=== PATIENT | male | born 1985 | race Two or more races ===

== ENCOUNTER 2022-07-03 18:52 | Inpatient (IN) | payer OTHER, SELFPAY ==
--- OUTSIDE RECORDS SUMMARY | 2022-07-03 18:55 | XMS_ITS | Continuity of Care Document ---
:1985 Author Organization [facility] Adult Address [address] [place] [address]- Care Team Providers Name Role Phone Claus KHALIL, [place] Primary Care Physician [phone] [id number] Date(s): 03/20/22 - 03/27/22 [facility] Adult [address] [place] [address] Attending Physician: Not on Staff, Attending MD Allergies, Adverse Reactions, Alerts Substance Reaction Severity Status lisinopril cough Active Immunizations Given and Recorded Vaccine Date Status Refusal Reason influenza virus vaccine, inactivated1 09/26/21 Given influenza virus vaccine, inactivated2 06/27/20 Given influenza virus vaccine, inactivated3 07/06/19 Given influenza virus vaccine, inactivated4 08/18/18 Given SARS-CoV-2 (COVID-19) mRNA-1273 vaccine 02/19/21 Recorded SARS-CoV-2 (COVID-19) mRNA-1273 vaccine 01/22/21 Recorded 1Result Comment: [facility] [id number] Comment: [facility] [phone] Comment: [facility] [phone] Comment: [08/18/2018] [facility] [address]-39 Syringe [address]-81 box Medications amLODIPine 5 mg oral tablet 1 tablet = 5 mg, By Mouth, Daily, # 90 tablet, 0 Refills, Maintenance, 03/05/22 15:27:00 EDT, Tablet, [id number], Partial fill upon patient request if the prescription is for a schedule II opioid drug., 178.3, cm, 03/05/22 10:51:00 EDT, Height Start Date: 03/05/22 Status: OrderedHome Blood Pressure Monitor See Instructions, # 1 each, Maintenance, Use as directed to check BP daily, 12/28/21 10:45:00 EDT, Supply Start Date: 12/28/21 Status: Orderedlosartan 50 mg oral tablet 100 mg, 2, tablet, By Mouth, Daily, 2 daily as of 02/27, # 60 tablet, Refills 5, Tot. Refills 5, Maintenance, 02/28/22 8:51:00 EDT, Route to Pharmacy Electronically, [facility]/pharmacy #[id number], Partial fill uponpatient request if the prescription is for a sche... Start Date: 02/28/22 Status: Ordered Problem List Condition Effective Dates Status Health Status Informant HTN (hypertension)(Confirmed) Active Obese class I(Confirmed) Active Obesity(Confirmed) Active Tobacco abuse(Confirmed) Active Vital Signs Most recent to oldest [Reference Range]: 1 2 Height 178.3 cm 178.3 cm (03/20/22 2:30 PM) (03/20/22 2:30 PM) Oxygen Saturation [94-100 %] 96 % 96 % (03/20/22 2:30 PM) (03/20/22 2:30 PM) Pulse Rate [55-90 bpm] 104 bpm 92 bpm *H* *H* (03/20/22 2:30 PM) (03/20/22 2:30 PM) Blood Pressure [90-138/55-84 mm Hg] 134/91 mm Hg 139/ 90 mm Hg (03/20/22 2:30 PM) *H* (03/20/22 2:30 PM) Mode of Delivery (Oxygen) Room air Room air (03/20/22 2:30 PM) (03/20/22 2:30 PM) Blood pressure sites Arm, left Arm, left (03/20/22 2:30 PM) (03/20/22 2:30 PM) Social History Social History Type Response Smoking Status 10 or more cigarettes (1/2 p ack or more)/day in last 30 days entered on: 08/18/18 Sex Male
--- OUTSIDE RECORDS SUMMARY | 2022-07-03 18:55 | XMS_ITS | Continuity of Care Document ---
:1985 Author Organization [facility] Adult Address [address] [place] [address]- Care Team Providers Name Role Phone Claus KHALIL, [place] Primary Care Physician [phone] Encounter [facility] Date(s): 04/25/22 - 05/25/22 [facility] Adult [address] [place] [id number] Allergies, Adverse Reactions, Alerts Substance Reaction Severity Status lisinopril cough Active Immunizations Given and Recorded Vaccine Date Status Refusal Reason influenza virus vaccine, inactivated1 09/26/21 Given influenza virus vaccine, inactivated2 06/27/20 Given influenza virus vaccine, inactivated3 07/06/19 Given influenza virus vaccine, inactivated4 08/18/18 Given SARS-CoV-2 (COVID-19) mRNA-1273 vaccine 02/19/21 Recorded SARS-CoV-2 (COVID-19) mRNA-1273 vaccine 01/22/21 Recorded 1Result Comment: [facility] [id number] Comment: [facility] [phone] Comment: [facility] [phone] Comment: [08/18/2018] [facility] [address]-63 Syringe [address]-73 box Medications amLODIPine 5 mg oral tablet 2 tablet = 10 mg, By Mouth, Daily, # 180 tablet, 1 Refills, Maintenance, 04/26/22 16:17:00 EDT, Tablet, [facility]/pharmacy #[id number], Partial fill upon patient request if the prescription is for a schedule II opioid drug., 178.3, cm, 03/21/22 9:06:00 EDT, Height Start Date: 04/26/22 Status: OrderedHome Blood Pressure Monitor See Instructions, # 1 each, Maintenance, Use as directed to check BP daily, 12/28/21 10:45:00 EDT, Supply Start Date: 12/28/21 Status: Orderedlosartan 50 mg oral tablet 100 mg, 2, tablet, By Mouth, Daily, 2 daily as of 02/27, # 60 tablet, Refills 5, Tot. Refills 5, Maintenance, 02/28/22 8:51:00 EDT, Route to Pharmacy Electronically, [facility]/pharmacy #[id number], Partial fill uponpatient request if the prescription is for a sche... Start Date: 02/28/22 Status: Ordered Problem List Condition Effective Dates Status Health Status Informant HTN (hypertension)(Confirmed) Active Obese class I(Confirmed) Active Obesity(Confirmed) Active Tobacco abuse(Confirmed) Active Social History Social History Type Response Smoking Status 10 or more cigarettes (1/2 p ack or more)/day in last 30 days entered on: 08/18/18 Sex Male Care Team PersonnelName: Mariel Devlin MD Address: [address] [place] [address] [address] [place], [place] [address]
--- OUTSIDE RECORDS SUMMARY | 2022-07-03 18:55 | XMS_ITS | Continuity of Care Document ---
:1985 Author Organization [facility] Adult Address [address] [place] [address]- Care Team Providers Name Role Phone Claus KHALIL, Mariel Primary Care Physician [place] [facility] Date(s): 04/30/22 - 05/30/22 [facility] Adult [address] [place] [address] Attending Physician: Admmamta, Remy8 Admitting Physician: Admtr, Remy8 Referring Physician: Admtr, Ar8 Allergies, Adverse Reactions, Alerts Substance Reaction Severity Status lisinopril cough Active Immunizations Given and Recorded Vaccine Date Status Refusal Reason influenza virus vaccine, inactivated1 09/26/21 Given influenza virus vaccine, inactivated2 06/27/20 Given influenza virus vaccine, inactivated3 07/06/19 Given influenza virus vaccine, inactivated4 08/18/18 Given SARS-CoV-2 (COVID-19) mRNA-1273 vaccine 02/19/21 Recorded SARS-CoV-2 (COVID-19) mRNA-1273 vaccine 01/22/21 Recorded 1Result Comment: [facility] [id number] Comment: [facility] [phone] Comment: [facility] [phone] Comment: [08/18/2018] [facility] [address]-48 Syringe [address]-51 box Medications amLODIPine 5 mg oral tablet 2 tablet = 10 mg, By Mouth, Daily, # 180 tablet, 1 Refills, Maintenance, 04/26/22 16:17:00 EDT, Tablet, [id number], Partial fill upon patient request if the [...] 02/28/22 8:51:00 EDT, Route to Pharmacy Electronically, [facility]/pharmacy #[id number], Partial fill uponpatient request if the prescription [...] on: 08/18/18 Sex Male Care Team PersonnelName: Claus KHALIL, Mariel Address: [address] [place] [address] [address] [place], [place] [address]
--- OUTSIDE RECORDS SUMMARY | 2022-07-03 18:55 | XMS_ITS | Continuity of Care Document ---
:1985 Author Organization [facility] Adult Address [address] [place] [address]- Care Team Providers Name Role Phone Claus KHALIL, [place] Primary Care Physician [place] [facility] Date[place]s): 02/27/22 - 03/29/22 [facility] Adult [address] [place] [address] Allergies, Adverse Reactions, Alerts Substance Reaction Severity Status lisinopril cough Active Immunizations Given and Recorded Vaccine Date Status Refusal Reason influenza virus vaccine, inactivated1 09/26/21 Given influenza virus vaccine, inactivated2 06/27/20 Given influenza virus vaccine, inactivated3 07/06/19 Given influenza virus vaccine, inactivated4 08/18/18 Given SARS-CoV-2 (COVID-19) mRNA-1273 vaccine 02/19/21 Recorded SARS-CoV-2 (COVID-19) mRNA-1273 vaccine 01/22/21 Recorded 1Result Comment: [facility] [id number] Comment: [facility] [phone] Comment: [facility] [phone] Comment: [08/18/2018] [facility] [address]-73 Syringe [address]-51 box Medications amLODIPine 5 mg oral tablet 1 tablet = 5 mg, By Mouth, Daily, # 90 tablet, 0 Refills, Maintenance, 03/05/22 15:27:00 EDT, Tablet, [id number], Partial fill upon patient request if the [...] 02/28/22 8:51:00 EDT, Route to Pharmacy Electronically, [facility]/pharmacy #[id number], Partial fill uponpatient request if the prescription [...]
--- OUTSIDE RECORDS SUMMARY | 2022-07-03 18:55 | XMS_ITS | Continuity of Care Document ---
:1985 Author Organization [facility] Address [address] [place] [address]- Care Team Providers Name Role Phone Alondra BOBBY, [place] Primary Care Physician Encounter [facility] Date(s): 03/10/20 - 03/17/20 [facility] [address] [place] [address]- [facility] Attending Physician: Matt KHALIL, Kanu Wen Referring Physician: Zenobia Cantu NP Allergies, Adverse Reactions, Alerts Substance Reaction Severity Status NKA Active Immunizations Given and Recorded Vaccine Date Status Refusal Reason influenza virus vaccine, inactivated1 07/06/19 Given influenza virus vaccine, inactivated2 08/18/18 Given 1Result Comment: [facility] [phone] Comment: [08/18/2018] [facility] [address]-25 Syringe [address]-86 box Medications Bactrim DS 800 mg-160 mg oral tablet 1 tablet, By Mouth, 2 times a day, for 10 days, # 20 tablet, 0 Refills, Acute 03/20/20 13:21:00 EDT,03/10/20 13:21:00 EDT, Tablet, [id number], 1 tablet By Mouth 2 times a day,x10 days, 178.3, cm, 03/10/20 13:12:00 EDT, Height Start Date: 03/10/20 Stop Date: 03/20/20 Status: OrderedLamISIL AT [employer] 1% topical cream 1 application, Topically, 2 times a day, # 30 Gm, 1 Refills, Maintenance, 08/18/18 13:31:05 EST, Cream, 1 application Topically 2 times a day Start Date: 08/18/18 Status: Orderednabumetone 500 mg oral tablet 1 tablet = 500 mg, By Mouth, 2 times a day, # 60 tablet, 1 Refills, Maintenance, 01/04/19 14:54:02 EDT, Tablet Start Date: 01/04/19 Status: OrderedWellbutrin SR 150 mg/12 hours oral tablet, extended release See Instructions, Take one tablet daily for one week and then increase to one tablet BID D/C Chantix, # 60 tablet, 3 Refills, Maintenance, 10/06/18 14:51:58 EST, ER Tablet Start Date: 10/06/18 Status: Ordered Problem List Condition Effective Dates Status Health Status Informant Tobacco abuse(Confirmed) Active Vital Signs Most recent to oldest [Reference Range]: 1 Height 178.3 cm (03/10/20 1:12 PM) Oxygen Saturation [94-100 %] 98 % (03/10/20 1:12 PM) Pulse Rate [55-90 bpm] 114 bpm *H* (03/10/20 1:12 PM) Blood Pressure [90-138/55-84 mm Hg] 146/90 mm Hg *H* (03/10/20 1:12 PM) Respiratory Rate [16-30 br/min] 20 br/min (03/10/20 1:12 PM) Temperature [96.8-100.4 DegF] 98.0 DegF (03/10/20 1:12 PM) Mode of Delivery (Oxygen) Room air (03/10/20 1:12 PM) Blood pressure sites Arm, left (03/10/20 1:12 PM) Temperature Route Temporal (03/10/20 1:12 PM) Social History Social History Type Response Smoking Status 10 or more cigarettes (1/2 p ack or more)/day in last 30 days entered on: 08/18/18 Sex
--- OUTSIDE RECORDS SUMMARY | 2022-07-03 18:55 | XMS_ITS | Continuity of Care Document ---
:1985 Author Organization [facility] Adult Address [address] [place] [address]- Care Team Providers Name Role Phone Alondra BOBBY, [place] Primary Care Physician [place] [facility] Date(s): 10/01/19 - 01/29/20 [facility] Adult [address] [place] [address]- [facility] Attending Physician: Not on Staff, Attending MD Allergies, Adverse Reactions, Alerts Substance Reaction Severity Status NKA Active Immunizations Given and Recorded Vaccine Date Status Refusal Reason influenza virus vaccine, inactivated1 07/06/19 Given influenza virus vaccine, inactivated2 08/18/18 Given 1Result Comment: [facility] [phone] Comment: [08/18/2018] [facility] [id number] Syringe [address]-20 box Medications LamISIL AT [facility] 1% topical cream 1 [...] Status Health Status Informant Tobacco abuse(Confirmed) Active Social History Social History Type Response Smoking Status 10 or more cigarettes (1/2 p ack or more)/day in last 30 days entered on: 08/18/18 Sex
--- OUTSIDE RECORDS SUMMARY | 2022-07-03 18:55 | XMS_ITS | Continuity of Care Document ---
:1985 Author Organization [facility] Adult Address [address] [place] [address]- Care Team Providers Name Role Phone Claus KHALIL, [place] Primary Care Physician [phone] Encounter [facility] [place] Date(s): 03/20/22 - 05/09/22 [facility] Adult [address] [place] [id number] Attending Physician: Not on Staff, Attending [...] (COVID-19) mRNA-1273 vaccine 01/22/21 Recorded 1Result Comment: [facility] [id number] Comment: [facility][note 2] [id number] Comment: [facility] [phone] Comment: [08/18/2018] [facility] [address]-10 Syringe [address]-50 box Medications amLODIPine 5 mg oral tablet 2 tablet = 10 mg, By Mouth, Daily, # 180 tablet, 1 Refills, Maintenance, 04/26/22 16:17:00 EDT, [facility]t, [id number], Partial fill upon patient request if the [...] 02/28/22 8:51:00 EDT, Route to Pharmacy Electronically, [facility]/pharmacy #[id number], Partial fill uponpatient request if the prescription [...]
--- OUTSIDE RECORDS SUMMARY | 2022-07-03 18:55 | XMS_ITS | Continuity of Care Document ---
:1985 Author Organization [facility] Adult Address [address] [place] [address]- Care Team Providers Name Role Phone Claus KHALIL, Mariel Primary Care Physician [place] [facility] [place] Date(s): 06/29/20 - 07/29/20 [facility] Adult [address] [place] [address]- [facility] Allergies, Adverse Reactions, Alerts Substance Reaction Severity Status NKA Active Immunizations Given and Recorded Vaccine Date Status Refusal Reason influenza virus vaccine, inactivated1 06/27/20 Given influenza virus vaccine, inactivated2 07/06/19 Given influenza virus vaccine, inactivated3 08/18/18 Given 1Result Comment: [facility] [id number] Comment: [facility] [phone] Comment: [08/18/2018] [facility] [address]-80 Syringe [address]-56 box Medications LamISIL AT [facility] 1% [...]
--- OUTSIDE RECORDS SUMMARY | 2022-07-03 18:55 | XMS_ITS | Continuity of Care Document ---
:1985 Author Organization [facility] Address [address] [place] [address]- Care Team Providers Name Role Phone Claus KHALIL, [place] Primary Care Physician [phone] Encounter [facility] Date(s): 03/05/22 - 04/04/22 [facility] [address] [place], [place] [address] Allergies, Adverse Reactions, Alerts Substance Reaction Severity Status lisinopril cough Active Immunizations Given and Recorded Vaccine Date Status Refusal Reason influenza virus vaccine, inactivated1 09/26/21 Given influenza virus vaccine, inactivated2 06/27/20 Given influenza virus vaccine, inactivated3 07/06/19 Given influenza virus vaccine, inactivated4 08/18/18 Given SARS-CoV-2 (COVID-19) mRNA-1273 vaccine 02/19/21 Recorded SARS-CoV-2 (COVID-19) mRNA-1273 vaccine 01/22/21 Recorded 1Result Comment: [facility] [id number] Comment: [facility] [id number] Comment: [facility] [phone] Comment: [08/18/2018] [facility] [address]-47 Syringe [address]-30 box Medications amLODIPine 5 mg oral tablet 1 tablet = 5 mg, By Mouth, Daily, # 90 tablet, 0 Refills, Maintenance, 03/05/22 15:27:00 EDT, Tablet, [id number], Partial fill upon patient request if the [...] 02/28/22 8:51:00 EDT, Route to Pharmacy Electronically, [facility]/pharmacy #[id number], Partial fill uponpatient request if the prescription [...]
--- OUTSIDE RECORDS SUMMARY | 2022-07-03 18:55 | XMS_ITS | Continuity of Care Document ---
:1985 Author Organization [facility] Adult Address [address] [place] [address]- Care Team Providers Name Role Phone Claus KHALIL, [place] Primary Care Physician [phone] En[place] [facility] Date(s): 03/05/22 - 03/12/22 [facility] [address] [place] [address] Attending Physician: Not on Staff, [...] vaccine 01/22/21 Recorded 1Result Comment: [facility] [id number] Comment: [facility] [phone] Comment: [facility] [phone] Comment: [08/18/2018] [facility] [address]-78 Syringe [address]-46 box Medications amLODIPine 5 mg oral tablet 1 tablet = 5 mg, By Mouth, Daily, # 90 tablet, 0 Refills, Maintenance, 03/05/22 15:27:00 EDT, Tablet, [id number], Partial fill upon patient request if the [...] 02/28/22 8:51:00 EDT, Route to Pharmacy Electronically, [facility]/pharmacy #[id number], Partial fill uponpatient request if the prescription is for a sche... Start Date: 02/28/22 Status: Ordered Problem List Condition Effective Dates Status Health Status Informant HTN (hypertension)(Confirmed) Active Obese class I(Confirmed) Active Obesity(Confirmed) Active Tobacco abuse(Confirmed) Active Vital Signs Most recent to oldest [Reference Range]: 1 2 Height 178.3 cm 178.3 cm (03/05/22 10:51 AM) (03/05/22 10:49 AM) Oxygen Saturation [94-100 %] 97 % (03/05/22 10:49 AM) Pulse Rate [55-90 bpm] 96 bpm 98 bpm *H* *H* (03/05/22 10:51 AM) (03/05/22 10:49 AM) Blood Pressure [90-138/55-84 mm Hg] 154/105 mm Hg 166/ 112 mm Hg *H* *H* (03/05/22 10:51 AM) (03/05/22 10:49 AM) Mode of Delivery (Oxygen) Nasal CPAP (03/05/22 10:49 AM) Blood pressure sites Arm, left Arm, left (03/05/22 10:51 AM) (03/05/22 10:49 AM) Social History Social History Type Response Smoking Status 10 or more cigarettes (1/2 p ack or more)/day in last 30 days entered on: 08/18/18 Sex Male
--- OUTSIDE RECORDS SUMMARY | 2022-07-03 18:55 | XMS_ITS | Continuity of Care Document ---
:1985 Author Organization [facility] Adult Address [address] [place] [address]- Care Team Providers Name Role Phone Claus KHALIL, Mariel Primary Care Physician [place] [facility] Date(s): 11/28/21 - 12/28/21 [facility] Adult [address] [place] [id number] Allergies, Adverse Reactions, Alerts Substance Reaction Severity Status lisinopril cough Active Immunizations Given and Recorded Vaccine Date Status Refusal Reason influenza virus vaccine, inactivated1 09/26/21 Given influenza virus vaccine, inactivated2 06/27/20 Given influenza virus vaccine, inactivated3 07/06/19 Given influenza virus vaccine, inactivated4 08/18/18 Given SARS-CoV-2 (COVID-19) mRNA-1273 vaccine 02/19/21 Recorded SARS-CoV-2 (COVID-19) mRNA-1273 vaccine 01/22/21 Recorded 1Result Comment: [facility] [id number] Comment: [facility] [id number] Comment: [facility] [phone] Comment: [08/18/2018] [facility] [id number] Syringe [id number] box Medications Home Blood Pressure Monitor See Instructions, # 1 each, Maintenance, Use as directed to check BP daily, 12/28/21 10:45:00 EDT, Supply Start Date: 12/28/21 Status: Orderedlosartan 50 mg oral tablet 50 mg, 1, tablet, By Mouth, Daily, # 30 tablet, Refills 5, Tot. Refills 5, Maintenance, 12/28/21 10:45:00 EDT, Route to Pharmacy Electronically, [facility]/pharmacy #[id number], Partial fill upon patient request ifthe prescription is for a schedule II opioid drug... Start Date: 12/28/21 Status: Ordered Problem List Condition Effective Dates Status Health Status Informant HTN (hypertension)(Confirmed) Active Obese class I(Confirmed) Active Obesity(Confirmed) Active Tobacco abuse(Confirmed) Active Social History Social History Type Response Smoking Status 10 or more cigarettes (1/2 p ack or more)/day in last 30 days entered on: 08/18/18 Sex Male
--- OUTSIDE RECORDS SUMMARY | 2022-07-03 18:55 | XMS_ITS | Continuity of Care Document ---
:1985 Author Organization [facility] Adult Address [address] [place] [address]- Care Team Providers Name Role Phone Claus KHALIL, Mraiel Primary Care Physician [phone] Encounter [facility] [id number] Date(s): 11/27/21 - 12/27/21 [facility] [address] [place] [address] Allergies, Adverse Reactions, Alerts No Known Allergies Immunizations Given and Recorded Vaccine Date Status Refusal Reason influenza virus vaccine, inactivated1 09/26/21 Given influenza virus vaccine, inactivated2 06/27/20 Given influenza virus vaccine, inactivated3 07/06/19 Given influenza virus vaccine, inactivated4 08/18/18 Given SARS-CoV-2 (COVID-19) mRNA-1273 vaccine 02/19/21 Recorded SARS-CoV-2 (COVID-19) mRNA-1273 vaccine 01/22/21 Recorded 1Result Comment: [facility] [id number] Comment: [facility] [id number] Comment: [facility] [phone] Comment: [08/18/2018] [facility] [id number] Syringe [address]-88 box Medications lisinopril 20 mg oral tablet 20 mg, 1, tablet, By Mouth, Daily, # 30 tablet, Refills 5, Tot. Refills 5, Maintenance, 12/21/21 13:43:00 EDT, Route to Pharmacy Electronically, [facility]/pharmacy #[id number], Partial fill upon patient request ifthe prescription is for a schedule II opioid drug... Start Date: 12/21/21 Stop Date: 06/19/22 Status: OrderedMultivitamin Daily, 0 Refills, Maintenance, 10/24/21 14:00:00 EST, Partial fill upon patient request if the prescription is for a schedule II opioid drug. Start Date: 10/24/21 Status: Ordered Problem List Condition Effective Dates Status Health Status Informant HTN (hypertension)(Confirmed) Active Obese class I(Confirmed) Active Obesity(Confirmed) Active Tobacco abuse(Confirmed) Active Social History Social History Type Response Smoking Status 10 or more cigarettes (1/2 p ack or more)/day in last 30 days entered on: 08/18/18 Sex Male
--- OUTSIDE RECORDS SUMMARY | 2022-07-03 18:55 | XMS_ITS | Continuity of Care Document ---
:1985 Author Organization [facility] Adult Address [address] [place] [address]- Care Team Providers Name Role Phone Mariel Devlin MD Primary Care Physician [phone] Encounter [facility] [place] Date(s): 01/28/22 - 02/04/22 [facility] Adult [address] [place] [address]- Encounter Diagnosis HTN (hypertension) (Discharge Diagnosis) - 01/28/22 Attending Physician: Mariel Devlin MD Allergies, Adverse Reactions, Alerts Substance Reaction Severity Status lisinopril cough Active Immunizations Given and Recorded Vaccine Date Status Refusal Reason influenza virus vaccine, inactivated1 09/26/21 Given influenza virus vaccine, inactivated2 06/27/20 Given influenza virus vaccine, inactivated3 07/06/19 Given influenza virus vaccine, inactivated4 08/18/18 Given SARS-CoV-2 (COVID-19) mRNA-1273 vaccine 02/19/21 Recorded SARS-CoV-2 (COVID-19) mRNA-1273 vaccine 01/22/21 Recorded 1Result Comment: [facility] [id number] Comment: [facility] [place] [id number] Comment: [facility] [phone] Comment: [08/18/2018] [facility] [address]-18 Syringe [id number] box Medications Home Blood Pressure Monitor See Instructions, # 1 each, Maintenance, Use as directed to check BP daily, 12/28/21 10:45:00 EDT, Supply Start Date: 12/28/21 Status: Orderedlosartan 50 mg oral tablet 50 mg, 1, tablet, By Mouth, Daily, # 30 tablet, Refills 5, Tot. Refills 5, Maintenance, 12/28/21 10:45:00 EDT, Route to Pharmacy Electronically, [facility]/pharmacy #[id number], Partial fill upon patient request ifthe prescription is for a schedule II opioid drug... Start Date: 12/28/21 Status: Ordered Problem List Condition Effective Dates Status Health Status Informant HTN (hypertension)(Confirmed) Active Obese class I(Confirmed) Active Obesity(Confirmed) Active Tobacco abuse(Confirmed) Active Diagnosis Diagnosis Type Effective Dates Health Status Clinical In formant Service HTN Discharge 01/28/22 (hypertension) Diagnosis Vital Signs Most recent to oldest [Reference Range]: 1 Height 178.3 cm (01/28/22 2:45 PM) Social History Social History Type Response Smoking Status 10 or more cigarettes (1/2 p ack or more)/day in last 30 days entered on: 08/18/18 Sex Male
--- OUTSIDE RECORDS SUMMARY | 2022-07-03 18:55 | XMS_ITS | Continuity of Care Document ---
:1985 Author Organization [facility] Address [address] [place] [address]- Care Team Providers Name Role Phone Alondra BOBBY, Zenobia Primary Care Physician [place] [facility] [place] 03/10/20 - 04/09/20 [facility] [address] [place] [address]- [facility] Attending Physician: Barbara Yip Admitting Physician: AdmBarbara oleary Referring Physician: Admtr ArRell Allergies, Adverse Reactions, Alerts Substance Reaction Severity Status NKA Active Immunizations Given and Recorded Vaccine Date Status Refusal Reason influenza virus vaccine, inactivated1 07/06/19 Given influenza virus vaccine, inactivated2 08/18/18 Given 1Result Comment: [facility] [phone] Comment: [08/18/2018] [facility] [address]-43 Syringe [address]-01 box Medications LamISIL AT [facility] 1% [...]
--- OUTSIDE RECORDS SUMMARY | 2022-07-03 18:55 | XMS_ITS | Continuity of Care Document ---
:1985 Author Organization [facility] Address [address] [place] [address]- Care Team Providers Name Role Phone Claus KHALIL, Mariel Primary Care Physician [phone] Encounter [facility] [place] Date(s): 09/26/21 - 10/03/21 [facility] [address] [place] [address] Encounter Diagnosis History of COVID-19 (Discharge Diagnosis) - 09/26/21 Obesity (Discharge Diagnosis) - 09/26/21 HTN (hypertension) (Discharge Diagnosis) - 09/26/21 Attending Physician: Mariel Devlin MD Allergies, Adverse Reactions, Alerts Substance Reaction Severity Status NKA Active Immunizations Given and Recorded Vaccine Date Status Refusal Reason influenza virus vaccine, inactivated1 09/26/21 Given influenza virus vaccine, inactivated2 06/27/20 Given influenza virus vaccine, inactivated3 07/06/19 Given influenza virus vaccine, inactivated4 08/18/18 Given 1Result Comment: [facility] [id number] Comment: [facility] [phone] Comment: [facility] [phone] Comment: [08/18/2018] [facility] [address]-29 Syringe [address]-49 box Medications lisinopril 10 mg oral tablet 10 mg, 1, tablet, By Mouth, Daily, # 30 tablet, Refills 1, Tot. Refills 1, Maintenance, 09/26/21 9:24:00 EST, Route to Pharmacy Electronically, [facility]/pharmacy #[id number], Partial fill upon patient request if the prescription is for a schedule II opioid drug.... Start Date: 09/26/21 Status: Ordered Problem List Condition Effective Dates Status Health Status Informant HTN (hypertension)(Confirmed) Active Obesity(Confirmed) Active Tobacco abuse(Confirmed) Active Diagnosis Diagnosis Type Effective Dates Health Status Clinical In formant Service History of Discharge 09/26/21 COVID-19 Diagnosis Obesity Discharge 09/26/21 Diagnosis HTN Discharge 09/26/21 (hypertension) Diagnosis Vital Signs Most recent to oldest 1 2 3 [Reference Range]: Height 178.3 cm 178.3 cm 178.3 cm (09/26/21 9:21 AM) (09/26/21 9:09 AM) (09/26/21 9:01 AM) Weight 106.2 kg (09/26/21 9:01 AM) Oxygen Saturation [94-100 %] 96 % (09/26/21 9:01 AM) Pulse Rate [55-90 bpm] 103 bpm *H* (09/26/21 9:01 AM) Body Mass Index [18.5-24.99] 33.41 *>HHI* (09/26/21 9:01 AM) Blood Pressure [90-138/55-84 144/86 mm Hg 159/112 mm Hg 168 /108 mm Hg mm Hg] *H* *H* *H* (09/26/21 9:21 AM) (09/26/21 9:09 AM) (09/26/21 9:01 AM) Temperature [96.8-100.4 98 DegF DegF] (09/26/21 9:01 AM) Mode of Delivery (Oxygen) Room air (09/26/21 9:01 AM) Blood pressure sites Arm, left Arm, left (09/26/21 9:09 AM) (09/26/21 9:01 AM) Temperature Route Oral (09/26/21 9:01 AM) Weight Obtained Via Standing scale (09/26/21 9:01 AM) Social History Social History Type Response Smoking Status 10 or more cigarettes (1/2 p ack or more)/day in last 30 days entered on: 08/18/18 Sex Male
--- OUTSIDE RECORDS SUMMARY | 2022-07-03 18:55 | XMS_ITS | Continuity of Care Document ---
:1985 Author Organization [facility] Address [address] [place] [address]- Care Team Providers Name Role Phone Claus KHALIL, Mariel Primary Care Physician Encounter [facility] [place] Date(s): 02/26/22 - 03/28/22 [facility] [address] [place] [id number] Allergies, Adverse Reactions, Alerts Substance Reaction Severity Status lisinopril cough Active Immunizations Given and Recorded Vaccine Date Status Refusal Reason influenza virus vaccine, inactivated1 09/26/21 Given influenza virus vaccine, inactivated2 06/27/20 Given influenza virus vaccine, inactivated3 07/06/19 Given influenza virus vaccine, inactivated4 08/18/18 Given SARS-CoV-2 (COVID-19) mRNA-1273 vaccine 02/19/21 Recorded SARS-CoV-2 (COVID-19) mRNA-1273 vaccine 01/22/21 Recorded 1Result Comment: [facility] [id number] Comment: [facility] [phone] Comment: [facility] [phone] Comment: [08/18/2018] [facility] [address]-79 Syringe [id number] box Medications amLODIPine 5 mg oral tablet 1 tablet = 5 mg, By Mouth, Daily, # 90 tablet, 0 Refills, Maintenance, 03/05/22 15:27:00 EDT, Tablet, [id number], Partial fill upon patient request if the [...] 02/28/22 8:51:00 EDT, Route to Pharmacy Electronically, [facility]/pharmacy #[id number], Partial fill uponpatient request if the prescription [...]
--- OUTSIDE RECORDS SUMMARY | 2022-07-03 18:55 | XMS_ITS | Continuity of Care Document ---
:1985 Author Organization [facility] Address [address] [place] [address]- Care Team Providers Name Role Phone Claus KHALIL, Mariel Primary Care Physician [place] [facility] [place] [id number] Date(s): 02/26/22 - 02/26/[address] [address]- Discharge Disposition: A-D/C Home Attending Physician: Jocelin Broderick MD Admitting Physician: Jocelin Broderick MD Referring Physician: Not on Staff, Referring MD Allergies, Adverse Reactions, Alerts Substance Reaction Severity Status lisinopril cough Active Immunizations Given and Recorded Vaccine Date Status Refusal Reason influenza virus vaccine, inactivated1 09/26/21 Given influenza virus vaccine, inactivated2 06/27/20 Given influenza virus vaccine, inactivated3 07/06/19 Given influenza virus vaccine, inactivated4 08/18/18 Given SARS-CoV-2 (COVID-19) mRNA-1273 vaccine 02/19/21 Recorded SARS-CoV-2 (COVID-19) mRNA-1273 vaccine 01/22/21 Recorded 1Result Comment: [facility] [id number] Comment: [facility] [phone] Comment: [facility] [phone] Comment: [08/18/2018] [facility] [address]-29 Syringe [id number] box Medications Home Blood Pressure Monitor See Instructions, # 1 each, Maintenance, Use as directed to check BP daily, 12/28/21 10:45:00 EDT, Supply Start Date: 12/28/21 Status: Orderedlosartan 50 mg oral tablet 50 mg, 1, tablet, By Mouth, Daily, # 30 tablet, Refills 5, Tot. Refills 5, Maintenance, 12/28/21 10:45:00 EDT, Route to Pharmacy Electronically, [facility]/pharmacy #[id number], Partial fill upon patient request ifthe prescription is for a schedule II opioid drug... Start Date: 12/28/21 Status: Ordered Problem List Condition Effective Dates Status Health Status Informant HTN (hypertension)(Confirmed) Active Obese class I(Confirmed) Active Obesity(Confirmed) Active Tobacco abuse(Confirmed) Active Results Radiology Reports Exam Date Time Procedure Performing Provider Status 02/26/22 3:28 PM Chest 2 Views Frontal and Lat Yancy Mcknight; Jovon (Verified) Notes:(Chest 2 Views Frontal and Lat) Reason For Exam: Chest Pain;Other:RESULT: Chest 2 Views Frontal and Lat Chest 2 Views Frontal and Lat INDICATION: Chest pain. COMPARISON: None. FINDINGS: LINES AND TUBES: None. LUNGS AND PLEURA: Clear lungs. Normal pulmonary vascularity. No pleural effusion. No pneumothorax. HEART, MEDIASTINUM AND JANET: Heart is normal in size. Normal upper mediastinal and hilar contour. BONES AND SOFT TISSUES: No acute abnormality. IMPRESSION: No acute abnormality. WSN: [id number] Ordering Physician: Don Harris Dictated By: Rene Chamorro MD Dictated Date/Time: 02/26/22 3:43 pm Reviewed By: Rene Chamorro MD Signed By: Rene Chamorro MD Signed Date/Time: 02/26/22 3:43 pm Transcribed By: ROMELIA Transcribed Date/Time: 02/26/22 3:42 pm Vital Signs Most recent to oldest 1 2 3 [Reference Range]: Oxygen Saturation [94-100 %] 99 % 99 % 100 % (02/26/22 3:54 PM) (02/26/22 2:25 PM) (02/26/22 2:0 3 PM) Pulse Rate [55-90 bpm] 93 bpm 108 bpm 135 bpm *H* *H* *H* (02/26/22 3:54 PM) (02/26/22 2:25 PM) (02/26/22 2:0 3 PM) Blood Pressure [90-138/55-84 mm 165/101 mm Hg 168/107 mm Hg Hg] *H* *H* (02/26/22 3:54 PM) (02/26/22 2:25 PM) Respiratory Rate [16-30 br/min] 22 br/min (02/26/22 2:25 PM) Temperature [96.8-100.4 DegF] 97.9 DegF 98.2 DegF (02/26/22 3:54 PM) (02/26/22 2:25 PM) Mode of Delivery (Oxygen) Room air Room air Room a ir (02/26/22 3:54 PM) (02/26/22 2:25 PM) (02/26/22 2:0 3 PM) Blood pressure sites Arm, left Arm, right (02/26/22 3:54 PM) (02/26/22 2:25 PM) Temperature Route Oral Oral (02/26/22 3:54 PM) (02/26/22 2:25 PM) Social History Social History Type Response Smoking Status 10 or more cigarettes (1/2 p ack or more)/day in last 30 days entered on: 08/18/18 Sex Male
--- OUTSIDE RECORDS SUMMARY | 2022-07-03 18:55 | XMS_ITS | Continuity of Care Document ---
:1985 Author Organization [facility] Adult Address [address] [place] [address]- Care Team Providers Name Role Phone Claus KHALIL, Mariel Primary Care Physician Encounter [id number] Date(s): 06/27/20 - 07/27/20 [facility] [address] [place] [address]- [facility] Attending Physician: Barbara Yip Admitting Physician: AdmtrBarbara Referring Physician: Admtr, Ar8 Allergies, Adverse Reactions, Alerts Substance Reaction Severity Status NKA Active Immunizations Given and Recorded Vaccine Date Status Refusal Reason influenza virus vaccine, inactivated1 06/27/20 Given influenza virus vaccine, inactivated2 07/06/19 Given influenza virus vaccine, inactivated3 08/18/18 Given 1Result Comment: [facility][note 3] [id number] Comment: [facility] [phone] Comment: [08/18/2018] [facility] [address]-65 Syringe [address]-30 box Medications LamISIL AT [facility] 1% [...]
--- OUTSIDE RECORDS SUMMARY | 2022-07-03 18:56 | XMS_ITS | Continuity of Care Document ---
:1985 Author Organization [facility] Adult Address [address] [place] [address]- Care Team Providers Name Role Phone Claus KHALIL, [place] Primary Care Physician [phone] Encounter [facility] [place] Date(s): 04/25/22 - 05/25/22 [facility] [address] [place] [address] Allergies, Adverse Reactions, Alerts Substance Reaction Severity Status lisinopril cough Active Immunizations Given and Recorded Vaccine Date Status Refusal Reason influenza virus vaccine, inactivated1 09/26/21 Given influenza virus vaccine, inactivated2 06/27/20 Given influenza virus vaccine, inactivated3 07/06/19 Given influenza virus vaccine, inactivated4 08/18/18 Given SARS-CoV-2 (COVID-19) mRNA-1273 vaccine 02/19/21 Recorded SARS-CoV-2 (COVID-19) mRNA-1273 vaccine 01/22/21 Recorded 1Result Comment: [facility] [id number] Comment: [facility] [phone] Comment: [facility] [phone] Comment: [08/18/2018] [facility] [address]-41 Syringe [address]-55 box Medications amLODIPine 5 mg oral tablet 2 tablet = 10 mg, By Mouth, Daily, # 180 tablet, 1 Refills, Maintenance, 04/26/22 16:17:00 EDT, Tablet, [facility]/pharmacy #[id number], Partial fill upon patient request if the [...] 02/28/22 8:51:00 EDT, Route to Pharmacy Electronically, [facility]/pharmacy #[id number], Partial fill uponpatient request if the prescription [...] Care Team PersonnelName: Mariel Devlin MD Address: [address] [place] [address] [address] [place], [place] [address]
--- OUTSIDE RECORDS SUMMARY | 2022-07-03 18:56 | XMS_ITS | Continuity of Care Document ---
:1985 Author Organization [facility] Adult Address [address] [place] [address]- Care Team Providers Name Role Phone Claus KHALIL, Mariel Primary Care Physician [place] [facility] [place](s): 06/26/20 - 07/26/20 [facility] [address] [place] [address]- [facility] Allergies, Adverse Reactions, Alerts Substance Reaction Severity Status NKA Active Immunizations Given and Recorded Vaccine Date Status Refusal Reason influenza virus vaccine, inactivated1 06/27/20 Given influenza virus vaccine, inactivated2 07/06/19 Given influenza virus vaccine, inactivated3 08/18/18 Given 1Result Comment: [facility] [phone] Comment: [facility] [phone] Comment: [08/18/2018] [facility] [address]-17 Syringe [address]-94 box Medications LamISIL AT [facility] 1% [...]
--- OUTSIDE RECORDS SUMMARY | 2022-07-03 18:56 | XMS_ITS | Continuity of Care Document ---
:1985 Author Organization [facility] Address [address] [place] [address]- Care Team Providers Name Role Phone Claus KHALIL, Mariel Primary Care Physician [place] [facility] [place] 12/31/21 - 01/30/22 [facility] [address] [place] [address]- Allergies, Adverse Reactions, Alerts Substance Reaction Severity Status lisinopril cough Active Immunizations Given and Recorded Vaccine Date Status Refusal Reason influenza virus vaccine, inactivated1 09/26/21 Given influenza virus vaccine, inactivated2 06/27/20 Given influenza virus vaccine, inactivated3 07/06/19 Given influenza virus vaccine, inactivated4 08/18/18 Given SARS-CoV-2 (COVID-19) mRNA-1273 vaccine 02/19/21 Recorded SARS-CoV-2 (COVID-19) mRNA-1273 vaccine 01/22/21 Recorded 1Result Comment: [facility] [id number] Comment: [facility] [phone] Comment: [facility] [phone] Comment: [08/18/2018] [facility] [address]-24 Syringe [address]-62 box Medications Home Blood Pressure Monitor See Instructions, # 1 each, Maintenance, Use as directed to check BP daily, 12/28/21 10:45:00 EDT, Supply Start Date: 12/28/21 Status: Orderedlosartan 50 mg oral tablet 50 mg, 1, tablet, By Mouth, Daily, # 30 tablet, Refills 5, Tot. Refills 5, Maintenance, 12/28/21 10:45:00 EDT, Route to Pharmacy Electronically, [facility]/pharmacy #[id number], Partial fill upon patient request ifthe prescription [...]
--- OUTSIDE RECORDS SUMMARY | 2022-07-03 18:56 | XMS_ITS | Continuity of Care Document ---
:1985 Author Organization [facility] Address [address] [place] [address]- Care Team Providers Name Role Phone Claus KHALIL, Mariel Primary Care Physician [phone] [place] [facility] [place](s): 12/26/21 - 01/25/22 [facility] [address] [place] [address]- Allergies, Adverse Reactions, Alerts Substance Reaction Severity Status lisinopril cough Active Immunizations Given and Recorded Vaccine Date Status Refusal Reason influenza virus vaccine, inactivated1 09/26/21 Given influenza virus vaccine, inactivated2 06/27/20 Given influenza virus vaccine, inactivated3 07/06/19 Given influenza virus vaccine, inactivated4 08/18/18 Given SARS-CoV-2 (COVID-19) mRNA-1273 vaccine 02/19/21 Recorded SARS-CoV-2 (COVID-19) mRNA-1273 vaccine 01/22/21 Recorded 1Result Comment: [facility] [id number] Comment: [facility] [phone] Comment: [facility] [phone] Comment: [08/18/2018] [facility] [address]-88 Syringe [address]-61 box Medications Home Blood Pressure Monitor See Instructions, # 1 each, Maintenance, Use as directed to check BP daily, 12/28/21 10:45:00 EDT, Supply Start Date: 12/28/21 Status: Orderedlosartan 50 mg oral tablet 50 mg, 1, tablet, By Mouth, Daily, # 30 tablet, Refills 5, Tot. Refills 5, Maintenance, 12/28/21 10:45:00 EDT, Route to Pharmacy Electronically, [facility]/pharmacy #[id number], Partial fill upon patient request ifthe prescription [...]
--- OUTSIDE RECORDS SUMMARY | 2022-07-03 18:56 | XMS_ITS | Continuity of Care Document ---
:1985 Author Organization [facility] Address [address] [place] [address]- Care Team Providers Name Role Phone Claus KHALIL, Mariel Primary Care Physician Encounter [facility] Date(s): 10/03/21 - 11/02/21 [facility] [address] [place] [id number] Allergies, Adverse Reactions, Alerts No Known Allergies Immunizations Given and Recorded Vaccine Date Status Refusal Reason influenza virus vaccine, inactivated1 09/26/21 Given influenza virus vaccine, inactivated2 06/27/20 Given influenza virus vaccine, inactivated3 07/06/19 Given influenza virus vaccine, inactivated4 08/18/18 Given SARS-CoV-2 (COVID-19) mRNA-1273 vaccine 02/19/21 Recorded SARS-CoV-2 (COVID-19) mRNA-1273 vaccine 01/22/21 Recorded 1Result Comment: [facility] [phone] Comment: [facility] [phone] Comment: [facility] [phone] Comment: [08/18/2018] [facility] [address]-85 Syringe [address]-34 box Medications lisinopril 10 mg oral tablet 10 mg, 1, tablet, By Mouth, Daily, # 90 tablet, Refills 3, Tot. Refills 3, Maintenance, 10/24/21 14:01:00 EST, Route to Pharmacy Electronically, [facility]/pharmacy #[id number], Partial fill upon patient request ifthe prescription is for a schedule II opioid drug... Start Date: 10/24/21 Status: OrderedMultivitamin Daily, 0 Refills, Maintenance, 10/24/21 [...]
--- OUTSIDE RECORDS SUMMARY | 2022-07-03 18:56 | XMS_ITS | Continuity of Care Document ---
:1985 Author Organization [facility] Adult Address [address] [place] [address]- Care Team Providers Name Role Phone Claus KHALIL, Mariel Primary Care Physician [phone] En[place] [facility] [place](s): 06/21/22 - 06/28/22 [facility] Adult [address] [place] [id number] Encounter Diagnosis Well adult exam (Discharge Diagnosis) - 06/21/22 HTN (hypertension) (Discharge Diagnosis) - 06/21/22 Obese class I (Discharge Diagnosis) - 06/21/22 Tobacco abuse (Discharge Diagnosis) - 06/21/22 Chest tightness (Discharge Diagnosis) - 06/21/22 Screening cholesterol level (Discharge Diagnosis) - 06/21/22 Incomplete RBBB (Discharge Diagnosis) - 06/21/22 Attending Physician: Claus KHALIL, Mariel Allergies, Adverse Reactions, Alerts Substance Reaction Severity Status lisinopril cough Active Immunizations Given and Recorded Vaccine Date Status Refusal Reason influenza virus vaccine, inactivated1 09/26/21 Given influenza virus vaccine, inactivated2 06/27/20 Given influenza virus vaccine, inactivated3 07/06/19 Given influenza virus vaccine, inactivated4 08/18/18 Given SARS-CoV-2 (COVID-19) mRNA-1273 vaccine 02/19/21 Recorded SARS-CoV-2 (COVID-19) mRNA-1273 vaccine 01/22/21 Recorded 1Result Comment: [facility] [id number] Comment: [facility] [phone] Comment: [facility] [phone] Comment: [08/18/2018] [facility] [address]-86 Syringe [address]-14 box Medications amLODIPine 5 mg oral tablet 2 tablet = 10 mg, By Mouth, Daily, # 180 tablet, 1 Refills, Maintenance, 04/26/22 16:17:00 EDT, Tablet, [facility]/pharmacy #[id number], Partial fill upon patient request if the [...] 02/28/22 8:51:00 EDT, Route to Pharmacy Electronically, [facility]/pharmacy #[id number], Partial fill uponpatient request if the prescription is for a sche... Start Date: 02/28/22 Status: Ordered Problem List Condition Confirmation Course Effective Dates Status Health Stat us Informant HTN (hypertension) Confirmed Active Incomplete RBBB Confirmed Active Obese class I Confirmed Active Obesity Confirmed Active Tobacco abuse Confirmed Active Diagnosis Diagnosis Type Effective Dates Health Clinical Infor [facility] Status Service Well adult exam Discharge 06/21/22 Diagnosis HTN (hypertension) Discharge 06/21/22 Diagnosis Obese class I Discharge 06/21/22 Diagnosis Tobacco abuse Discharge 06/21/22 Diagnosis Chest tightness Discharge 06/21/22 Diagnosis Screening Discharge 06/21/22 cholesterol level Diagnosis Incomplete RBBB Discharge 06/21/22 Diagnosis Vital Signs Most recent to oldest 1 2 3 [Reference Range]: Height 178.1 cm 178.1 cm 178.1 cm (06/24/22 10:09 AM) (06/21/22 1:19 PM) (06/21/22 1: 05 PM) Weight 105.4 kg 105.4 kg (06/24/22 10:09 AM) (06/21/22 1:05 PM) Oxygen Saturation [94-100 %] 98 % (06/21/22 1:05 PM) Pulse Rate [55-90 bpm] 108 bpm *H* (06/21/22 1:05 PM) Body Mass Index [18.5-24.99 33.23 kg/m2 kg/m2] *>HHI* (06/21/22 1:05 PM) Blood Pressure [90-138/55-84 134/87 mm Hg 146/84 mm Hg mm Hg] (06/21/22 1:19 PM) *H* (06/21/22 1:05 PM) Temperature [96.8-100.4 DegF] 98.5 DegF (06/21/22 1:05 PM) Mode of Delivery (Oxygen) Room air (06/21/22 1:05 PM) Blood pressure sites Arm, left Arm, left (06/21/22 1:19 PM) (06/21/22 1:05 PM) Temperature Route Oral (06/21/22 1:05 PM) Weight Obtained Via Standing scale (06/21/22 1:05 PM) Social History Social History Type Response Smoking Status 10 or more cigarettes (1/2 p ack or more)/day in last 30 days; Type: Cigarettes; Tobacco use times per day: 1/2-1 PPD; Started at age: 25; entered on: 06/21/22 Sex Male Patient Care team information PersonnelName: Claus KHALIL, Mariel Address: Address: [address] Floor [place], [place] [address]
--- OUTSIDE RECORDS SUMMARY | 2022-07-03 18:56 | XMS_ITS | Continuity of Care Document ---
:1985 Author Organization [facility] Adult Address [address] [place] [address]- Care Team Providers Name Role Phone Claus KHALIL, Mariel Primary Care Physician Encounter [facility] [place] Date(s): 10/24/21 - 10/31/[address] [address] Encounter Diagnosis HTN (hypertension) (Discharge Diagnosis) - 10/24/21 Obesity (Discharge Diagnosis) - 10/24/21 Attending Physician: Mariel Devlin MD Allergies, Adverse Reactions, Alerts No Known Allergies Immunizations Given and Recorded Vaccine Date Status Refusal Reason influenza virus vaccine, inactivated1 09/26/21 Given influenza virus vaccine, inactivated2 06/27/20 Given influenza virus vaccine, inactivated3 07/06/19 Given influenza virus vaccine, inactivated4 08/18/18 Given SARS-CoV-2 (COVID-19) mRNA-1273 vaccine 02/19/21 Recorded SARS-CoV-2 (COVID-19) mRNA-1273 vaccine 01/22/21 Recorded 1Result Comment: [facility] [id number] Comment: [facility] [phone] Comment: [facility] [phone] Comment: [08/18/2018] [facility] [id number] Syringe [address]-16 box Medications lisinopril 10 mg oral tablet 10 mg, 1, tablet, By Mouth, Daily, # 90 tablet, Refills 3, Tot. Refills 3, Maintenance, 10/24/21 14:01:00 EST, Route to Pharmacy Electronically, [facility]/pharmacy #[id number], Partial fill upon patient request ifthe prescription [...] Status Clinical In formant Service HTN Discharge 10/24/21 (hypertension) Diagnosis Obesity Discharge 10/24/21 Diagnosis Vital Signs Most recent to oldest [Reference Range]: 1 Height 178.3 cm (10/24/21 1:44 PM) Weight 102.8 kg (10/24/21 1:44 PM) Oxygen Saturation [94-100 %] 98 % (10/24/21 1:44 PM) Pulse Rate [55-90 bpm] 111 bpm *H* (10/24/21 1:44 PM) Body Mass Index [18.5-24.99] 32.34 *>HHI* (10/24/21 1:44 PM) Blood Pressure [90-138/55-84 mm Hg] 128/72 mm Hg (10/24/21 1:44 PM) Temperature [96.8-100.4 DegF] 98.1 DegF (10/24/21 1:44 PM) Mode of Delivery (Oxygen) Room air (10/24/21 1:44 PM) Blood pressure sites Arm, left (10/24/21 1:44 PM) Temperature Route Oral (10/24/21 1:44 PM) Social History Social History Type Response Smoking Status 10 or more cigarettes (1/2 p ack or more)/day in last 30 days entered on: 08/18/18 Sex Male
--- OUTSIDE RECORDS SUMMARY | 2022-07-03 18:56 | XMS_ITS | Continuity of Care Document ---
:1985 Author Organization [facility] Address [address] [place] [address]- Care Team Providers Name Role Phone Alondra BOBBY, Zenobia Primary Care Physician [place] [facility] [place] Date(s): 12/30/19 - 01/09/20 [facility] [address] [place] [address] Attending Physician: AdmBarbara oleary Admitting Physician: AdmBarbara oleary Referring Physician: Admtr, Ar8 Allergies, Adverse Reactions, Alerts Substance Reaction Severity Status NKA Active Immunizations Given and Recorded Vaccine Date Status Refusal Reason influenza virus vaccine, inactivated1 07/06/19 Given influenza virus vaccine, inactivated2 08/18/18 Given 1Result Comment: [facility] [phone] Comment: [08/18/2018] [facility] [address]-90 Syringe [address]-83 box Medications LamISIL AT [facility] 1% [...]
--- OUTSIDE RECORDS SUMMARY | 2022-07-03 18:56 | XMS_ITS | Continuity of Care Document ---
:1985 Author Organization [facility] Adult Address [address] [place] [address]- Care Team Providers Name Role Phone Claus KHALIL, Mariel Primary Care Physician En[facility] Date(s): 12/28/21 - 01/04/[address] [address]- Encounter Diagnosis HTN (hypertension) (Discharge Diagnosis) - 12/28/21 Headache (Discharge Diagnosis) - 12/28/21 Chest tightness (Discharge Diagnosis) - 12/28/21 Attending Physician: Mariel Devlin MD Allergies, Adverse Reactions, Alerts Substance Reaction Severity Status lisinopril cough Active Immunizations Given and Recorded Vaccine Date Status Refusal Reason influenza virus vaccine, inactivated1 09/26/21 Given influenza virus vaccine, inactivated2 06/27/20 Given influenza virus vaccine, inactivated3 07/06/19 Given influenza virus vaccine, inactivated4 08/18/18 Given SARS-CoV-2 (COVID-19) mRNA-1273 vaccine 02/19/21 Recorded SARS-CoV-2 (COVID-19) mRNA-1273 vaccine 01/22/21 Recorded 1Result Comment: [facility] [id number] Comment: [facility] [phone] Comment: [facility] [phone] Comment: [08/18/2018] [facility] [address]-71 Syringe [address]-21 box Medications Home Blood Pressure Monitor See Instructions, # 1 each, Maintenance, Use as directed to check BP daily, 12/28/21 10:45:00 EDT, Supply Start Date: 12/28/21 Status: Orderedlosartan 50 mg oral tablet 50 mg, 1, tablet, By Mouth, Daily, # 30 tablet, Refills 5, Tot. Refills 5, Maintenance, 12/28/21 10:45:00 EDT, Route to Pharmacy Electronically, [facility]/pharmacy #[id number], Partial fill upon patient request ifthe prescription is for a schedule II opioid drug... Start Date: 12/28/21 Status: Ordered Problem List Condition Effective Dates Status Health Status Informant HTN (hypertension)(Confirmed) Active Obese class I(Confirmed) Active Obesity(Confirmed) Active Tobacco abuse(Confirmed) Active Diagnosis Diagnosis Type Effective Dates Health Status Clinical In formant Service HTN Discharge 12/28/21 (hypertension) Diagnosis Headache Discharge 12/28/21 Diagnosis Chest tightness Discharge 12/28/21 Diagnosis Vital Signs Most recent to oldest [Reference Range]: 1 Height 178.3 cm (12/28/21 10:23 AM) Weight 106.3 kg (12/28/21 10:23 AM) Oxygen Saturation [94-100 %] 99 % (12/28/21 10:23 AM) Pulse Rate [55-90 bpm] 101 bpm *H* (12/28/21 10:23 AM) Body Mass Index [18.5-24.99] 33.44 *>HHI* (12/28/21 10:23 AM) Blood Pressure [90-138/55-84 mm Hg] 124/76 mm Hg (12/28/21 10:23 AM) Temperature [96.8-100.4 DegF] 98.3 DegF (12/28/21 10:23 AM) Mode of Delivery (Oxygen) Room air (12/28/21 10:23 AM) Blood pressure sites Arm, left (12/28/21 10:23 AM) Temperature Route Oral (12/28/21 10:23 AM) Social History Social History Type Response Smoking Status 10 or more cigarettes (1/2 p ack or more)/day in last 30 days entered on: 08/18/18 Sex Male
--- OUTSIDE RECORDS SUMMARY | 2022-07-03 18:56 | XMS_ITS | Continuity of Care Document ---
:1985 Author Organization [facility] Adult Address [address] [place] [address]- Care Team Providers Name Role Phone Claus KHALIL, [place] Primary Care Physician [place] [facility] 04/[place]/22 - 05/07/22 [facility] [address] [place] [id number] Attending Physician: Not on Staff, Attending MD [...] mRNA-1273 vaccine 01/22/21 Recorded 1Result Comment: [facility] [id number] Comment: [facility] [phone] Comment: [facility] [phone] Comment: [08/18/2018] [facility] [address]-31 Syringe [address]-03 box Medications amLODIPine 5 mg oral tablet 2 tablet = 10 mg, By Mouth, Daily, # 180 tablet, 1 Refills, Maintenance, 04/26/22 16:17:00 EDT, Tablet, [id number], Partial fill upon patient request if the [...] 02/28/22 8:51:00 EDT, Route to Pharmacy Electronically, [facility]/pharmacy #[id number], Partial fill uponpatient request if the prescription is for a sche... Start Date: 02/28/22 Status: Ordered Problem List Condition Effective Dates Status Health Status Informant HTN (hypertension)(Confirmed) Active Obese class I(Confirmed) Active Obesity(Confirmed) Active Tobacco abuse(Confirmed) Active Vital Signs Most recent to oldest 1 2 3 [Reference Range]: Height 178.3 cm 178.3 cm 178.3 cm (04/30/22 11:17 AM) (04/30/22 11:08 AM) (04/30/22 11:0 3 AM) Oxygen Saturation [94-100 %] 97 % (04/30/22 11:03 AM) Pulse Rate [55-90 bpm] 95 bpm *H* (04/30/22 11:03 AM) Blood Pressure [90-138/55-84 mm 135/87 mm Hg 134/90 mm Hg 133/86 mm Hg Hg] (04/30/22 11:17 AM) (04/30/22 11:08 AM) (04/30/22 11:0 3 AM) Mode of Delivery (Oxygen) Room air (04/30/22 11:03 AM) Blood pressure sites Arm, left Arm, left Arm, left (04/30/22 11:17 AM) (04/30/22 11:08 AM) (04/30/22 11:0 3 AM) Social History Social History Type Response Smoking Status 10 or more cigarettes (1/2 p ack or more)/day in last 30 days entered on: 08/18/18 Sex Male
--- OUTSIDE RECORDS SUMMARY | 2022-07-03 18:56 | XMS_ITS | Continuity of Care Document ---
:1985 Author Organization [facility] Adult Address [address] [place] [address]- Care Team Providers Name Role Phone Claus KHALIL, Mariel Primary Care Physician [place] [facility] [place] Date(s): 02/27/22 - 04/11/22 [facility] Adult [address] [place] [address] Attending Physician: Mariel Devlin MD Allergies, Adverse [...] mRNA-1273 vaccine 01/22/21 Recorded 1Result Comment: [facility] [id number] Comment: [facility] [id number] Comment: [facility] [phone] Comment: [08/18/2018] [facility] [address]-77 Syringe [address]-10 box Medications amLODIPine 5 mg oral tablet 1 tablet = 5 mg, By Mouth, Daily, # 90 tablet, 0 Refills, Maintenance, 03/05/22 15:27:00 EDT, Tablet, [id number], Partial fill upon patient request if the [...] 02/28/22 8:51:00 EDT, Route to Pharmacy Electronically, [facility]/pharmacy #[id number], Partial fill uponpatient request if the prescription [...]
--- OUTSIDE RECORDS SUMMARY | 2022-07-03 18:56 | XMS_ITS | Continuity of Care Document ---
:1985 Author Organization [facility] Adult Address [address] [place] [address]- Care Team Providers Name Role Phone Claus KHALIL, [place] Primary Care Physician En[place] [facility] [place] Date(s): 04/26/22 - 05/26/22 [facility] Adult [address] [place] [id number] Allergies, Adverse Reactions, Alerts Substance Reaction Severity Status lisinopril cough Active Immunizations Given and Recorded Vaccine Date Status Refusal Reason influenza virus vaccine, inactivated1 09/26/21 Given influenza virus vaccine, inactivated2 06/27/20 Given influenza virus vaccine, inactivated3 07/06/19 Given influenza virus vaccine, inactivated4 08/18/18 Given SARS-CoV-2 (COVID-19) mRNA-1273 vaccine 02/19/21 Recorded SARS-CoV-2 (COVID-19) mRNA-1273 vaccine 01/22/21 Recorded 1Result Comment: [facility] [id number] Comment: [facility] [phone] Comment: [facility] [phone] Comment: [08/18/2018] [facility] [address]-64 Syringe [address]-22 box Medications amLODIPine 5 mg oral tablet 2 tablet = 10 mg, By Mouth, Daily, # 180 tablet, 1 Refills, Maintenance, 04/26/22 16:17:00 EDT, Tablet, [facility]/pharmacy #[id number], Partial fill upon patient request if the [...] 02/28/22 8:51:00 EDT, Route to Pharmacy Electronically, [facility]/pharmacy #[id number], Partial fill uponpatient request if the prescription [...] Care Team PersonnelName: Mariel Devlin MD Address: [address] [place] [address] [address] [place], [place] [address]
--- OUTSIDE RECORDS SUMMARY | 2022-07-03 18:56 | XMS_ITS | Continuity of Care Document ---
:1985 Author Organization [facility] Adult Address [address] [place] [address]- Care Team Providers Name Role Phone Claus KHALIL, [place] Primary Care Physician [place] [facility] [place] 03[place]22 [facility] Adult [address] [place] [id number] Allergies, Adverse Reactions, Alerts Substance Reaction Severity Status lisinopril cough Active Immunizations Given and Recorded Vaccine Date Status Refusal Reason influenza virus vaccine, inactivated1 09/26/21 Given influenza virus vaccine, inactivated2 06/27/20 Given influenza virus vaccine, inactivated3 07/06/19 Given influenza virus vaccine, inactivated4 08/18/18 Given SARS-CoV-2 (COVID-19) mRNA-1273 vaccine 02/19/21 Recorded SARS-CoV-2 (COVID-19) mRNA-1273 vaccine 01/22/21 Recorded 1Result Comment: [facility] [id number] Comment: [facility] [phone] Comment: [facility] [phone] Comment: [08/18/2018] [facility] [address]-20 Syringe [id number] box Medications amLODIPine 5 mg oral tablet 1 tablet = 5 mg, By Mouth, Daily, # 90 tablet, 0 Refills, Maintenance, 03/05/22 15:27:00 EDT, Tablet, [id number], Partial fill upon patient request if the [...] 02/28/22 8:51:00 EDT, Route to Pharmacy Electronically, [facility]/pharmacy #[id number], Partial fill uponpatient request if the prescription [...]
--- OUTSIDE RECORDS SUMMARY | 2022-07-03 18:56 | XMS_ITS | Continuity of Care Document ---
:1985 Author Organization [facility] Adult Address [address] [place] [address]- Care Team Providers Name Role Phone Claus KHALIL, Mariel Primary Care Physician [phone] Encounter [facility] [place] Date(s): 06/27/20 - 07/04/20 [facility] Adult [address] [place] [address]- [facility] Encounter Diagnosis Left flank pain (Discharge Diagnosis) - 06/27/20 Attending Physician: Joel BOBBY, Yola Allergies, Adverse Reactions, Alerts Substance Reaction Severity Status NKA Active Immunizations Given and Recorded Vaccine Date Status Refusal Reason influenza virus vaccine, inactivated1 06/27/20 Given influenza virus vaccine, inactivated2 07/06/19 Given influenza virus vaccine, inactivated3 08/18/18 Given 1Result Comment: [facility] [id number] Comment: [facility] [phone] Comment: [08/18/2018] [facility] [address]-09 Syringe [address]-03 box Medications LamISIL AT [facility] 1% [...] Status Health Status Informant Tobacco abuse(Confirmed) Active Diagnosis Diagnosis Type Effective Dates Health Status Clinical In formant Service Left flank pain Discharge 06/27/20 Diagnosis Vital Signs Most recent to oldest [Reference Range]: 1 2 Height 178.3 cm 178.3 cm (06/27/20 3:49 PM) (06/27/20 3:37 PM) Weight 106.6 kg (06/27/20 3:37 PM) Oxygen Saturation [94-100 %] 95 % (06/27/20 3:37 PM) Pulse Rate [55-90 bpm] 104 bpm *H* (06/27/20 3:37 PM) Body Mass Index [18.5-24.99] 33.53 *>HHI* (06/27/20 3:37 PM) Blood Pressure [90-138/55-84 mm Hg] 144/98 mm Hg 144/ 90 mm Hg *H* *H* (06/27/20 3:49 PM) (06/27/20 3:37 PM) Temperature [96.8-100.4 DegF] 99 DegF (06/27/20 3:37 PM) Mode of Delivery (Oxygen) Room air (06/27/20 3:37 PM) Blood pressure sites Arm, left Arm, left (06/27/20 3:49 PM) (06/27/20 3:37 PM) Temperature Route Oral (06/27/20 3:37 PM) Weight Obtained Via Standing scale (06/27/20 3:37 PM) Social History Social History Type Response Smoking Status 10 or more cigarettes (1/2 p ack or more)/day in last 30 days entered on: 08/18/18 Sex Male
--- OUTSIDE RECORDS SUMMARY | 2022-07-03 18:56 | XMS_ITS | Continuity of Care Document ---
:1985 Author Organization [facility] Address [address] [place] [address]- Care Team Providers Name Role Phone Claus KHALIL, Mariel Primary Care Physician Encounter [facility] Date(s): 09/24/21 - 10/24/21 [facility] [address] [place] [address] Allergies, Adverse Reactions, Alerts No Known Allergies Immunizations Given and Recorded Vaccine Date Status Refusal Reason influenza virus vaccine, inactivated1 09/26/21 Given influenza virus vaccine, inactivated2 06/27/20 Given influenza virus vaccine, inactivated3 07/06/19 Given influenza virus vaccine, inactivated4 08/18/18 Given SARS-CoV-2 (COVID-19) mRNA-1273 vaccine 02/19/21 Recorded SARS-CoV-2 (COVID-19) mRNA-1273 vaccine 01/22/21 Recorded 1Result Comment: [facility] [id number] Comment: [facility] [phone] Comment: [facility] [phone] Comment: [08/18/2018] [facility] [address]-72 Syringe [id number] box Medications lisinopril 10 mg oral tablet 10 mg, 1, tablet, By Mouth, Daily, # 90 tablet, Refills 3, Tot. Refills 3, Maintenance, 10/24/21 14:01:00 EST, Route to Pharmacy Electronically, [facility]/pharmacy #[id number], Partial fill upon patient request ifthe prescription [...]
--- OUTSIDE RECORDS SUMMARY | 2022-07-03 18:56 | XMS_ITS | Continuity of Care Document ---
:1985 Author Organization [facility] Adult Address [address] [place] [address]- Care Team Providers Name Role Phone Claus KHALIL, Mariel Primary Care Physician Encounter [facility] [place] Date(s): 11/27/21 - 12/27/21 [facility] Adult [address] [place] [id number] Allergies, Adverse Reactions, Alerts No Known Allergies Immunizations Given and Recorded Vaccine Date Status Refusal Reason influenza virus vaccine, inactivated1 09/26/21 Given influenza virus vaccine, inactivated2 06/27/20 Given influenza virus vaccine, inactivated3 07/06/19 Given influenza virus vaccine, inactivated4 08/18/18 Given SARS-CoV-2 (COVID-19) mRNA-1273 vaccine 02/19/21 Recorded SARS-CoV-2 (COVID-19) mRNA-1273 vaccine 01/22/21 Recorded 1Result Comment: [facility] [id number] Comment: [facility] [phone] Comment: [facility] [phone] Comment: [08/18/2018] [facility] [address]-78 Syringe [address]-08 box Medications lisinopril 20 mg oral tablet 20 mg, 1, tablet, By Mouth, Daily, # 30 tablet, Refills 5, Tot. Refills 5, Maintenance, 12/21/21 13:43:00 EDT, Route to Pharmacy Electronically, [facility]/pharmacy #[id number], Partial fill upon patient request ifthe prescription [...]
[2022-07-03 19:18] VITALS: BP 143/93; PULSE 103; RESP 16; TEMP 37.1; O2SAT 97
--- NOTE | 2022-07-03 20:51 | PC.NURSE ---
Pt was admitted on CV to [facility] @1918 from [facility]. Signed 3-day notice. Pt reports he had some health issues, including fluctuating BPs and potential hearing loss that precipitated his thoughts of self harm leading him to overdose on Losartan and amlodipine, taking @25+pills of each initially, followed by 10 more. He reports his is very supportive and helped him realize both his BP and hearing are manageable issues and he has a lot to live for, including his children.? ??Pt was preoccupied with returning to work and does not feel he needs to be hospitalized. During assessment, he was A&O, INAD, pleasant and cooperative, answered questions appropriately. Dns SI/HI/AH/VH/safety concerns except when a patient told him to get of his room, which Hernán was assigned to and has since been moved to another room. ALLERGIES: Lisinopril, reports s/e: dry cough, dizziness, headache. Legal status: 3-day Jacob No COVID ?Negative Mood: Depressed, anxious, but pleasant and cooperative. Affect anxious. Substance use: Denies.? MedHx: Htn, ?hearing loss. EKG NSR.? PsycheHx: Unspecified depressive disorder.? VS at admission: 98.7, 103, 16, 143/93, 97%.? Goal: My goal is to get some help when I get mad to handle things.
[2022-07-03] MEDS: hydrOXYzine HCL 25 MG TABLET PO (22:38)
[2022-07-03] MEDS: traZODone HCL 50 MG TABLET PO (22:38)
[2022-07-04 08:37] VITALS: BP 132/76; PULSE 96; RESP 18; TEMP 36.6; O2SAT 100
[2022-07-04] MEDS: amLODIPine Besylate 10 MG TABLET PO (08:38)
[2022-07-04] MEDS: Losartan Potassium 50 MG TABLET PO (08:38)
[2022-07-04 09:35] LABS: Alanine Aminotransferase 23 U/L (0-40); Albumin Level 4.5 g/dL (3.5-5.0); Alkaline Phosphatase 73 U/L (39-117); Anion Gap 13 (12-20); Aspartate Amino Transferase 15 U/L (5-37); Bilirubin Total 1.1 mg/dL (0.0-1.0); Blood Urea Nitrogen 15 mg/dL (9-16); Calcium 9.3 mg/dL (8.4-10.2); Carbon Dioxide 27 mmol/L (22-29); Chloride 104 mmol/L (96-108); Cholesterol 89 mg/dL; Estimated Glomerular Filt Rate > 60; Glucose Fasting 91 mg/dL (60-99); HDL Cholesterol 24 mg/dL; LDL Cholesterol Calculated 49 mg/dl; Potassium 3.7 mmol/L (3.3-5.1); Sodium 140 mmol/L (135-145); Total Protein 7.1 g/dL (6.5-8.0); Triglycerides 81 mg/dL
--- NOTE | 2022-07-04 12:53 | P.CONHOSP_ITS ---
History of Present Illness Data of Consult Service Date: 07/04/22 Requesting physician: Andrea Alexander Primary Care Provider: Mariel Haney MD HPI Reason for consult: medical H&P 37 year old male with history of depression admitted to M3 from [facility] ED after intentional overdose on his amlodipine pills. Pt tells me he took 20mg of his amlodipine after finding out unpleasant news from work and that he has right sided hearing loss. He states he was not thinking and does not wish to . His blood pressure in the ED was 131/76 on arrival and EKG was WNL. Hem and chem studies normal. He denies any medical complaints. Smokes 1/2 ppd cigarettes and denies any other substance use. Review of Systems Review of Systems: General: No fevers, malaise, unintentional weight loss Cardiovascular: No chest pain, palpitations, or leg edema Respiratory: No shortness of breath, wheezing, cough GI: No abdominal pain, nausea, vomiting, diarrhea, constipation, melena, hematochezia Neuro: No headaches, weakness, paresthesias Skin: No rashes or lesions [facility] Medical History (Updated 07/04/22 @ 12:57 by RUSTAM Wheeler) HTN (hypertension) Intentional overdose of antihypertensive Family History Mother HTN (hypertension) Father Osteoarthritis Social History Household Members: Spouse and Children Household Members Other:: 2 children, Housing: House Do you presently have visiting nurse or other home services: No Patient Tobacco Use Status: Current everyday Tobacco user Tobacco use type: Cigarette Cigarette Packs Per Day: 0.5 Cigarettes Per Day: 10.0 Years Smoked: 10 Smoked in Last 30 Days: Yes Patient Interested in Nicotine Replacement: Yes (Will ask if wanted.) Patient Given Instructions on How to Stop Smoking: No Second Hand Smoke Exposure: No Use of substances other than those prescribed or required for medical reasons: No Have you been hit, kicked, punched, or otherwise hurt by someone within the past year? If so, by whom?: No Do you feel safe in your current relationship?: Yes Is there a partner from a previous relationship who is making you feel unsafe now?: No Are you made to feel afraid or neglected: No Spiritual Healthcare Practices: None Advance Directives: No Advance Directives Information Provided: No (Not interested at this time.) Do you have thoughts of harming others: None Do you have a plan to hurt others: No Plan Recently lost weight without trying: No Eating poorly because of decreased appetite: No Nutrition Risks: No Nutritional Risk Poor oral hygiene: No service: No Sexual orientation: Straight/Heterosexual Meds Allergies Allergy/AdvReac Type Severity Reaction Status Date / Time lisinopril Allergy Cough Verified 07/03/22 19:35 Active Medications: Current Medications Acetaminophen (Acetaminophen 325 Mg Tablet) 650 mg PO Q6H PRN PRN Reason: Headache/Pain Mild Scale (1-3) Al Hydroxide/Mg Hydroxide (Magnesium Hydrox/Alum Hydrox 30 Ml Oral.Susp) 30 ml PO Q6H PRN PRN Reason: Heartburn/Nausea Amlodipine Besylate (Amlodipine Besylate 10 Mg Tablet) 10 mg PO DAILY [facility]; Protocol Last Admin: 07/04/22 08:38 Dose: 10 mg Hydroxyzine HCl (Hydroxyzine Hcl 25 Mg Tablet) 25 mg PO Q6H PRN PRN Reason: Anxiety Last Admin: 07/03/22 22:38 Dose: 25 mg Losartan Potassium (Losartan Potassium 50 Mg Tablet) 50 mg PO DAILY [facility]; Protocol Last Admin: 07/04/22 08:38 Dose: 50 mg Magnesium Hydroxide (Milk Of Magnesia 30 Ml Oral.Susp) 30 ml PO DAILY PRN PRN Reason: Constipation Trazodone HCl (Trazodone Hcl 50 Mg Tablet) 50 mg PO BEDTIME PRN PRN Reason: Insomnia Last Admin: 07/03/22 22:38 Dose: 50 mg Physical Exam Vital Signs and Narrative: Vital Signs: Last Vital Signs Temp 97.9 F 07/04/22 08:37 Pulse 96 07/04/22 08:37 Resp 18 07/04/22 08:37 BP 132/76 07/04/22 08:37 Pulse Ox 100 07/04/22 08:37 O2 Del Method 07/04/22 08:37 Constitutional - Awake and Alert, No apparent distress Eyes - PERRLA, EOMI Cardiovascular - S1S2, RRR, No edema Respiratory - Normal lung expansion, Normal respiratory effort, No respiratory distress, CTA bilaterally Gastrointestinal - NT / ND; +BS; No rebound or guarding Extremities - no calf tenderness bilaterally, no swelling Skin - Warm/Dry Neurological - Alert & oriented x3, CN II-XII in tact, 5/5 strength BUE and BLE Psychological - Appropriate affect Results Labs CBC and Chem 7: 07/04/22 07:58 Labs: Laboratory Results - last 24 hr 07/04/22 07:58 Anion Gap 13 Estim Creat Clear Calc TNP Estimated GFR > 60 Fasting Glucose 91 Calcium 9.3 Total Bilirubin 1.1 H AST 15 ALT 23 Alkaline Phosphatase 73 Total Protein 7.1 Albumin 4.5 Triglycerides 81 Cholesterol 89 LDL Cholesterol, Calc 49 HDL Cholesterol 24 Assessment and Plan (1) Intentional overdose of antihypertensive: Status: Acute Plan 37 year old male with history of depression admitted to M3 from [facility] ED after intentional overdose on his amlodipine pills with consult placed for medical H&P. 1- Intentional overdose -pt denies SI -Plan per psychiatry [id number] -Continue home amlodipine and losartan CMP and cholesterol levels reviewed and are WNL. EKG from ED WNL. Thank you for allowing me to participate in this consult. Signing off at this time. Please do not hesitate to call for further questions.
--- NOTE | 2022-07-04 17:09 | P.HPPS_ITS ---
HPI Date of Service: 07/04/22 Chief Complaint: Depression HPI Narrative: presented to [facility] ED after intentional ingestion of 25 pills of norvasc and losartan. he was medically admitted. he minimized his behavior and said he was fine at the time of the interview and only needed a counselor. he described what he had done as an impulsive act and stated he needed to get back to work. his agreed on his suitability for discharge home, but the hospital disagreed and after medical stabilization he was referred out for psychiatric hospitalization. on interview with MD at psych hosp, pt states he was frustrated with his HTN and took the pills out of frustration, no SI. he had a whole bottle of pills and didn't take all of them; if he had been wanting to kill himself he would have taken them all. he describes relationship stress with his and asks for referral to couples therapy. he reviews all of his obligations and some financial worries and states he needs to get back to work [employer]. MD encourages pt to seek individual therapy as well, and he is receptive. he denies any chronic mental health symptoms or mood or anxiety concerns. he is agreeable to discharge tomorrow. Past Psychiatric History: no h/o psych hosps. no h/o SA or SIB. no h/o outpt mental health Tx. Medical Evaluation Reviewed: Yes [facility] Medical History (Updated 07/04/22 @ 12:57 by RUSTAM Wheeler) HTN (hypertension) Intentional overdose of antihypertensive Family History: deferred Social History: raised by both parents in [place] until 7 yo when they moved to [place]. 2 brothers. for 6 years, has been with partner for 16 years. has 9 and 12 yo kids with her. HS grad. works in a factory. Substance History: alcohol - h/o drinking but states he has had none for 2-3 years. denies any other substance use. Trauma History: denies Diagnostics Vital Signs (24Hr): Vital Signs - 24 hr 07/03/22 19:18 07/04/22 08:37 Temperature 98.7 F 97.9 F Pulse Rate 103 H 96 Respiratory Rate 16 18 Blood Pressure 143/93 H 132/76 Pulse Oximetry 97 100 Oxygen Delivery Method Room Air Room Air Labs Results: 07/04/22 07:58 Labs: Laboratory Results - last 48 hr 07/04/22 07:58 Sodium 140 Potassium 3.7 Chloride 104 Carbon Dioxide 27 Anion Gap 13 BUN 15 Creatinine 0.96 Estim Creat Clear Calc TNP Estimated GFR > 60 Fasting Glucose 91 Calcium 9.3 Total Bilirubin 1.1 H AST 15 ALT 23 Alkaline Phosphatase 73 Total Protein 7.1 Albumin 4.5 Triglycerides 81 Cholesterol 89 LDL Cholesterol, Calc 49 HDL Cholesterol 24 Meds/Allergies Allergies Allergies Allergy/AdvReac Type Severity Reaction Status Date / Time lisinopril Allergy Cough Verified 07/03/22 19:35 Mental Status Exam Mental Status Exam Narrative: adequately dressed and groomed. cooperative. thick latin accent. no PMA/PMR. speech incr in rate and amount, nml loudness and latency. thoughts logical, somewhat wandering and over-inclusive of detail. affect contricted, normo- intense, non-labile. mood euthymic. denies SI/HI/AVH. Assessment & Plan Assessment & Plan (1) Intentional overdose of antihypertensive: Status: Acute Code(s): T46.5X2A - Poisoning by other antihypertensive drugs, intentional self-harm, initial encounter (2) HTN (hypertension): Status: Acute Code(s): I10 - Essential (primary) hypertension Plan pt is calm and cooperative, future-oriented, with home supports. he is treatment seeking. he reports he was frustrated and denies any mood or anxiety disorder. he is interested in discharge and F/U with couples and ind therapy. plan is to discharge tomorrow. Patient educated on: therapeutic strategies Reason for continued inpatient stay Substantial Risk for: stable for discharge
[2022-07-04 22:24] VITALS: BP 133/83; PULSE 88; RESP 18; TEMP 36.4; O2SAT 98
[2022-07-04] MEDS: traZODone HCL 50 MG TABLET PO (22:29)
[2022-07-04] MEDS: hydrOXYzine HCL 25 MG TABLET PO (22:29)
[2022-07-05] MEDS: amLODIPine Besylate 10 MG TABLET PO (08:38)
[2022-07-05] MEDS: Losartan Potassium 50 MG TABLET PO (08:38)
[2022-07-05 09:34] VITALS: BP 139/87; PULSE 94; RESP 18; TEMP 36.7; O2SAT 99
--- NOTE | 2022-07-05 10:36 | P.DS_ITS ---
DS: Providers Provider Date of Service: 07/05/22 Date of admission: 07/03/22 18:52 Primary care physician: Mariel Haney MD Consults: 07/03/22 10:58 Consult to Hospitalist Routine Consulting Provider: Hospitalist Reason For Exam: direct admission 07/03/22 23:33 Consult to Hospitalist Routine Consulting Provider: Hospitalist Reason For Exam: H&P, from [facility] DS: Diagnosis Discharge Diagnosis (1) Intentional overdose of antihypertensive: Status: Acute DS: Medications Discharge Medications Home Medications: Previous Rx's Medication Instructions Recorded amlodipine 10 mg tablet 10 mg PO DAILY #0 tabs 07/05/22 losartan 50 mg tablet 50 mg PO DAILY #0 tabs 07/05/22 nicotine (polacrilex) 2 mg gum 2 mg buccal Q2H 30 days #20 ea 07/05/22 Mental Status Exam Mental Status Exam Narrative: adequately dressed and groomed. cooperative. thick latin accent. no PMA/PMR. speech incr in rate and amount, nml loudness and latency. thoughts logical, somewhat wandering and over-inclusive of detail. affect more flexible, normo- intense, non-labile. mood i feel great. denies SI/HI/AVH. Data Data Completed and Pending Completed studies during hospitalization [Text1]: 07/04/22 07:58 Sodium 140 Potassium 3.7 Chloride 104 Carbon Dioxide 27 Anion Gap 13 BUN 15 Creatinine 0.96 Estim Creat Clear Calc TNP Estimated GFR > 60 Fasting Glucose 91 Calcium 9.3 Total Bilirubin 1.1 H AST 15 ALT 23 Alkaline Phosphatase 73 Total Protein 7.1 Albumin 4.5 Triglycerides 81 Cholesterol 89 LDL Cholesterol, Calc 49 HDL Cholesterol 24 DS: Summary Hospital Course Hospital Course: per 07/04 admission note: presented to [facility] ED after intentional ingestion of 25 pills of norvasc and losartan.? he was medically admitted.? he minimized his behavior and said he was fine at the time of the interview and only needed a counselor. ? he described what he had done as an impulsive act and stated he needed to get back to work.? his agreed on his suitability for discharge home, but the hos pital disagreed and after medical stabilization he was referred out for psychiatric hospitalization. on interview with MD at psych hosp, pt states he was frustrated with his HTN and took the pills out of frustration, no SI.? he had a whole bottle of pills and didn't take all of them; if he had been wanting to kill himself he would have taken them all.? he describes relationship stress with his and asks for referral to couples therapy.? he reviews all of his obligations and some financial worries and states he needs to get back to work [employer].? MD encourages pt to seek individual therapy as well, and he is receptive.? he denies any chronic mental health symptoms or mood or anxiety concerns.? he is agreeable to discharge tomorrow. Past Psychiatric History: no h/o psych hosps. no h/o SA or SIB. no h/o outpt mental health Tx. Medical Evaluation Reviewed: Yes [facility] Medical History?(Updated 07/04/22 @ 12:57 by RUSTAM Wheeler) HTN (hypertension) Intentional overdose of antihypertensive Family History: deferred Social History: raised by both parents in [place] until 7 yo when they moved to [place].? 2 brothers.? for 6 years, has been with partner for 16 years.? has 9 and 12 yo kids with her.? HS grad.? works in a factory. Substance History: alcohol - h/o drinking but states he has had none for 2-3 years. denies any other substance use. Trauma History: denies Precis: 07/04: pt is calm and cooperative, future-oriented, with home supports.? he is treatment seeking.? he reports he was frustrated and denies any mood or anxiety disorder.? he is interested in discharge and F/U with couples and ind therapy.? plan is to discharge tomorrow. 07/05: stable, safe. aftercare referral in place. discharge to home. Time Spent with Patient Time attestation: Total time spent providing and/or coordinating discharge services: Time spent: Greater than 30 minutes Discharge Plan Discharge Anticipated Discharge Date/Time: 07/05/22 11:00 Patient Disposition: Home, Self-Care Discharge Diagnosis: Mood Disorder NOS Referrals: YSABEL LUIS, [facility] [Other] - 07/11/22 10:00 am (THERAPIST WILL CALL YOU) Mariel Kurtz MD [Primary Care Provider] - 07/05/22 2:00 pm Discharge Medications: New losartan 50 mg Tablet 50 mg PO DAILY Qty: 0 0RF Protocol: Hold for SBP< HOLD for SBP < : 90 amlodipine 10 mg Tablet 10 mg PO DAILY Qty: 0 0RF Protocol: Hold for SBP< HOLD for SBP < : 90 nicotine (polacrilex) 2 mg gum 2 mg buccal Q2H 30 Days Qty: 20 0RF Discharge Orders: Discharge Order (Routine); Ordered 07/05/22 Ordered By: Danish Wakefield Diet: Advance to usual diet Activity on Discharge: As tolerated Stand Alone Forms: Patient Portal Discharge page, Community Support Care Plan Goals: remain safe and stable in the outpatient treatment setting Health Concerns: HTN Plan of Treatment: take medications as prescribed, attend appointments as scheduled Assessment: not at imminent risk of harm to self or others
--- NOTE | 2022-07-05 10:43 | PC.NURSE ---
Patient offered a nicotine replacement and refused. Patient also offered flu vaccine and refused at this time.
== END 2022-07-05 11:45 | disposition home or self-care (01) | DRG 918 ==
PROVIDERS: Psychiatry & Neurology Psychiatry; Admitting Provider Psychiatry & Neurology Psychiatry; PCP Internal Medicine; Visit Provider Psychiatry & Neurology Psychiatry
DX: T46.5X2A Poisoning by other antihypertensive drugs, intentional self-harm, initial encounter (principal); I10 Essential (primary) hypertension; F17.210 Nicotine dependence, cigarettes, uncomplicated; Z71.6 Tobacco abuse counseling; Z88.8 Allergy status to other drugs, medicaments and biological substances; Z79.899 Other long term (current) drug therapy
CPT/HCPCS: 36415; 80053; 80061